=== PATIENT | female | born 1940 | race Asian ===

== ENCOUNTER 2019-08-25 15:16 | Inpatient (IN) | payer MEDICARE, OTHER ==
[2019-08-25] MEDS ORDERED: HALOPERIDOL 5 MG TABLET PO PRN (18:30)
[2019-08-25] MEDS ORDERED: ZOLPIDEM TARTRATE 10 MG TABLET PO PRN (18:30)
[2019-08-25] MEDS ORDERED: LORazepam 2 MG TABLET PO PRN (18:30)
[2019-08-25 20:55] VITALS: BP 129/87
[2019-08-25] MEDS ORDERED: PNEUMOCOCCAL VACCINE POLYVALENT 0.5 ML VIAL [PPSV23] IM ONE (23:45)
[2019-08-26 07:21] LABS: GLUCOMETER DEV NAME(LOC) 3EX.; GLUCOSE,POINT OF CARE 106 MG/DL (70-110)
[2019-08-26 08:05] LABS: ABG A-A DIFF O2 426.9 mmHg (10-20.0); ABG BASE EXCESS -24.1 mmol/L (-2.0-3.0); ABG CARBOXYHEMOGLOBIN 1.1 % (0.0-1.5); ABG METHEMOGLOBIN 0.3 % (0.0-1.5); ABG OXYGEN CONTENT 21.1 mL/dL (15.0-23.0); ABG OXYGEN SATURATION 99.3 % (95.0-98.0); ABG OXYHEMOGLOBIN 97.9 % (94.0-100.0); ABG TOTAL HEMOGLOBIN 14.9 G/dL (12.0-18.0); PO2, ARTERIAL BG 267.1 mmHg (71.0-79.0); SOURCE, BLOOD GAS ARTERIAL; TEMPERATURE, FAHRENHEIT, BG 98.6 FAHREN (96.0-98.6)
[2019-08-26 08:06] LABS: ABG HCO3 9.1 mmol/L (22.0-26.0); ABG PCO2 19 mmHg (35-45); ABG PH 7.094 (7.35-7.450); SITE, BLOOD GAS RT RADIAL
[2019-08-26 08:07] LABS: O2 DEVICE,BLOOD GAS NON REBREATHER (ROOM AIR)
[2019-08-26 08:11] LABS: EOSINOPHILS % (AUTO) 0 % (1.0-6.0); HEMATOCRIT 43.7 % (36-46); HEMOGLOBIN 14.2 g/dL (12.0-16.0); LYMPHOCYTES # (AUTO) 0.3 K/uL (1.0-4.8); LYMPHOCYTES % (AUTO) 1.6 % (22.0-44.0); MEAN CORPUSCULAR HEMOGLOBIN 32.9 pg (26.0-34.0); MEAN CORPUSCULAR HGB CONC 32.5 G/dL (31.0-37.0); MEAN CORPUSCULAR VOLUME 101 fL (80-100); MONOCYTES % (AUTO) 6.3 % (2.0-9.0); PLATELET COUNT (AUTO) 155 K/uL (150-450); RED BLOOD CELL COUNT(AUTO) 4.31 MIL/uL (4.00-5.20); RED CELL DISTRIBUTION WIDTH 16.3 % (11.5-14.5)
[2019-08-26 08:13] LABS: NEUTROPHILS % (AUTO) 92.1 % (40.0-70.0)
[2019-08-26] MEDS ORDERED: FUROSEMIDE 40 MG/4 ML VIAL IVP ONE (08:15)
[2019-08-26 08:24] LABS: INR 1.8 (0.9-1.1); PROTHROMBIN TIME 18.2 SEC (9.4-11.6)
[2019-08-26 09:01] LABS: LACTIC ACID 8.3 mmol/L (0.4-2.0)
[2019-08-26 09:14] LABS: ALBUMIN 2.7 g/dL (3.4-5.0); BILIRUBIN,TOTAL 2.3 mg/dL (0.1-1.0); CALCIUM, TOTAL 8.2 mg/dL (8.8-10.5); CREATININE 4.63 mg/dL (0.60-1.30); TOTAL PROTEIN, SERUM 5.7 g/dL (6.4-8.2)
[2019-08-26 09:19] LABS: POTASSIUM 7.5 mmol/L (3.5-5.1)
== END 2019-08-26 07:35 | disposition short-term general hospital (02) | DRG 885 ==
LOC: EMS 15:19 → 3EX 21:30
PROVIDERS: ADMIT Psychiatry & Neurology Child & Adolescent Psychiatry; ATTEND Psychiatry & Neurology Child & Adolescent Psychiatry
DX: F20.0 Paranoid schizophrenia (principal); G93.40 Encephalopathy, unspecified; R00.0 Tachycardia, unspecified
CPT/HCPCS: 82805; 83605; 93005; G0378; J1940

== ENCOUNTER 2019-08-26 07:40 | Inpatient (IN) | payer MEDICARE ==
[~2019-08-26] VITALS: Ht 152.4 cm; Wt 66.0 kg
[2019-08-26 08:00] VITALS: BP 113/79
[2019-08-26] MEDS ORDERED: SODIUM BICARBONATE [ADULT] 8.4% 50 MEQ/50 ML SYRINGE IVP ONE ×2 (09:31→12:15)
[2019-08-26] MEDS ORDERED: DEXTROSE 50%-WATER 25 GM/50 ML SYRINGE IVP ONE (09:31)
[2019-08-26] MEDS ORDERED: SODIUM CHLORIDE 0.9% 1,000 ML IV ONE (09:46)
[2019-08-26] MEDS ORDERED: BISACODYL 10 MG RECTAL RECTAL SUPPOSITORY PR PRN (10:00)
[2019-08-26] MEDS ORDERED: ZOLPIDEM TARTRATE 5 MG TABLET PO PRN (10:00)
[2019-08-26] MEDS ORDERED: ACETAMINOPHEN 325 MG TABLET PO PRN (10:00)
[2019-08-26] MEDS ORDERED: MAGNESIUM HYDROXIDE SUSPENSION 30 ML UDCUP PO PRN (10:00)
[2019-08-26] MEDS ORDERED: HYDROCODONE/ACETAMINOPHEN 5-325 MG TABLET PO PRN (10:00)
[2019-08-26] MEDS ORDERED: MORPHINE SULFATE 2 MG/ML SYRINGE IVP PRN (10:00)
[2019-08-26] MEDS ORDERED: ONDANSETRON HCL 4 MG/2 ML VIAL IVP PRN (10:00)
[2019-08-26] MEDS ORDERED: CALCIUM GLUCONATE 100 MG/ML 10 ML IVP ONE (11:00)
[2019-08-26] MEDS ORDERED: *CLINICAL-CEFEPIME DOSING CLINICAL ONE (11:15)
[2019-08-26 11:21] LABS: ABG A-A DIFF O2 92.8 mmHg (10-20.0); ABG BASE EXCESS -19.8 mmol/L (-2.0-3.0); ABG CARBOXYHEMOGLOBIN 1.1 % (0.0-1.5); ABG HCO3 11.1 mmol/L (22.0-26.0); ABG METHEMOGLOBIN 0.3 % (0.0-1.5); ABG OXYGEN CONTENT 18.9 mL/dL (15.0-23.0); ABG OXYGEN SATURATION 97.8 % (95.0-98.0); ABG OXYHEMOGLOBIN 96.4 % (94.0-100.0); ABG PCO2 27 mmHg (35-45); ABG PH 7.149 (7.35-7.450); ABG TOTAL HEMOGLOBIN 13.8 G/dL (12.0-18.0); SITE, BLOOD GAS RT RADIAL; SOURCE, BLOOD GAS ARTERIAL; TEMPERATURE, FAHRENHEIT, BG 98.6 FAHREN (96.0-98.6)
[2019-08-26 11:22] LABS: O2 DEVICE,BLOOD GAS CANNULA (ROOM AIR)
[2019-08-26] MEDS ORDERED: PHENYLEPHRINE 200 MG/D5%-WATER 250 ML IV PRN (11:30)
[2019-08-26] MEDS: SODIUM BICARBONATE 75 MEQ in SODIUM CHLORIDE 0.45% 1,000 ML IV SCH ×2 (11:47→22:29)
[2019-08-26 12:17] LABS: BASOPHILS % (AUTO) 0.2 % (0.0-2.0); EOSINOPHILS % (AUTO) 0 % (1.0-6.0); HEMOGLOBIN 13.2 g/dL (12.0-16.0); LYMPHOCYTES # (AUTO) 0.3 K/uL (1.0-4.8); LYMPHOCYTES % (AUTO) 1.6 % (22.0-44.0); MEAN CORPUSCULAR HEMOGLOBIN 32.9 pg (26.0-34.0); MEAN CORPUSCULAR HGB CONC 32.9 G/dL (31.0-37.0); MEAN CORPUSCULAR VOLUME 100 fL (80-100); MONOCYTES # (AUTO) 1.4 K/uL (0.1-1.0); MONOCYTES % (AUTO) 7.9 % (2.0-9.0); NEUTROPHILS # (AUTO) 15.7 K/uL (1.8-7.7); PLATELET COUNT (AUTO) 139 K/uL (150-450); RED CELL DISTRIBUTION WIDTH 16.1 % (11.5-14.5)
[2019-08-26 12:26] LABS: PROTHROMBIN TIME 20.7 SEC (9.4-11.6)
[2019-08-26 12:33] LABS: NEUTROPHILS % (AUTO) 90.3 % (40.0-70.0)
[2019-08-26 13:46] VITALS: BP 132/100
[2019-08-26 14:09] LABS: CALCIUM, TOTAL 8.1 mg/dL (8.8-10.5); CREATININE 4.67 mg/dL (0.60-1.30); MAGNESIUM 2.4 mg/dL (1.80-2.40)
[2019-08-26 14:19] LABS: PHOSPHORUS 10.5 mg/dL (2.5-4.9); POTASSIUM 6.3 mmol/L (3.5-5.1)
[2019-08-26] MEDS ORDERED: MANNITOL 25%-12.5 GM/50 ML VIAL IVP PRN (15:15)
[2019-08-26] MEDS ORDERED: SODIUM CITRATE 4% CATH FLUSH 5 ML SYRINGE IVP ONE ×2 (15:15)
[2019-08-26] MEDS: CEFEPIME HCL 1 GM in DEXTROSE 5%-WATER 50 ML IV SCH ×2 (15:42→16:08)
[2019-08-26] MEDS ORDERED: HEPARIN SODIUM,PORCINE 5,000 UNITS/ML VIAL SQ SCH (16:00)
[2019-08-26 17:00] VITALS: BP 104/57
[2019-08-26 20:00] VITALS: BP 115/69
[2019-08-26] MEDS: DOCUSATE SODIUM 100 MG CAPSULE PO SCH (21:00)
[2019-08-26] MEDS ORDERED: FUROSEMIDE 20 MG/2 ML VIAL IVP SCH (21:00)
[2019-08-27] VITALS: BP 91/66
[2019-08-27 01:18] LABS: C.DIFF GDH ANTIGEN, Stool Negative (Negative); C.DIFF TOXINS A&B, Stool Negative (Negative)
[2019-08-27 02:39] VITALS: BP 101/71
[2019-08-27 04:00] VITALS: BP 110/65
[2019-08-27 05:27] LABS: HEMATOCRIT 40.4 % (36-46); HEMOGLOBIN 13.4 g/dL (12.0-16.0); MEAN CORPUSCULAR HEMOGLOBIN 32.7 pg (26.0-34.0); MEAN CORPUSCULAR HGB CONC 33.2 G/dL (31.0-37.0); MEAN CORPUSCULAR VOLUME 98 fL (80-100); PLATELET COUNT (AUTO) 87 K/uL (150-450); RED CELL DISTRIBUTION WIDTH 16.2 % (11.5-14.5)
[2019-08-27 06:01] LABS: BAND NEUTROPHILS % (MANUAL) 10 % (0-5); CORRECTED WHITE BLOOD COUNT 13.4 K/uL (4.5-11.0); LYMPHOCYTES % (MANUAL) 1 % (22-44); MONOCYTES % (MANUAL) 5 % (2-9); SEGMENTED NEUTROPHILS % 84 % (40-70)
[2019-08-27 06:05] LABS: ALBUMIN 2.2 g/dL (3.4-5.0); BILIRUBIN,TOTAL 2.7 mg/dL (0.1-1.0); CALCIUM, TOTAL 7.7 mg/dL (8.8-10.5); MAGNESIUM 2.1 mg/dL (1.80-2.40); PHOSPHORUS 8.3 mg/dL (2.5-4.9); POTASSIUM 5.7 mmol/L (3.5-5.1); THYROID STIMULATING HORMONE 11.34 uIU/mL (0.36-3.74); TOTAL PROTEIN, SERUM 4.4 g/dL (6.4-8.2)
[2019-08-27] MEDS ORDERED: DEXTROSE 50%-WATER 25 GM/50 ML SYRINGE IVP ONE ×2 (06:09→19:29)
[2019-08-27] MEDS ORDERED: DEXTROSE 50%-WATER 25 GM/50 ML SYRINGE IVP PRN (06:30)
[2019-08-27 07:31] LABS: GLUCOSE,POINT OF CARE 198 MG/DL (70-110)
[2019-08-27] MEDS: DOCUSATE SODIUM 100 MG CAPSULE PO SCH (09:00)
[2019-08-27] MEDS ORDERED: PANTOPRAZOLE SODIUM 40 MG DR TABLET PO SCH (09:00)
[2019-08-27] MEDS ORDERED: NOREPINEPHRINE 4 MG/D5%-WATER 250 ML IV ONE (09:18)
[2019-08-27] MEDS ORDERED: VASOPRESSIN 40 UNITS in DEXTROSE 5%-WATER 98 ML IV PRN (10:15)
[2019-08-27 10:16] LABS: ABG A-A DIFF O2 454.1 mmHg (10-20.0); ABG BASE EXCESS -17.2 mmol/L (-2.0-3.0); ABG HCO3 12.8 mmol/L (22.0-26.0); ABG METHEMOGLOBIN 0.3 % (0.0-1.5); ABG OXYGEN CONTENT 19.4 mL/dL (15.0-23.0); ABG OXYGEN SATURATION 99.1 % (95.0-98.0); ABG OXYHEMOGLOBIN 97.8 % (94.0-100.0); ABG PCO2 26 mmHg (35-45); ABG TOTAL HEMOGLOBIN 13.7 G/dL (12.0-18.0); O2 DEVICE,BLOOD GAS VENTILATOR (ROOM AIR); PO2, ARTERIAL BG 232.7 mmHg (71.0-79.0); SITE, BLOOD GAS LFT RADIAL; SOURCE, BLOOD GAS ARTERIAL; TEMPERATURE, FAHRENHEIT, BG 98.6 FAHREN (96.0-98.6)
[2019-08-27 10:17] LABS: PEEP,BG 5 cm H2O; VT, ABG 450 ml
[2019-08-27] MEDS: NOREPINEPHRINE 4 MG/D5%-WATER 250 ML IV PRN ×3 (10:24→16:20)
[2019-08-27] MEDS ORDERED: DOPamine HCL 400 MG/D5%-WATER 250 ML IV PRN (10:30)
[2019-08-27] MEDS ORDERED: SODIUM CHLORIDE 0.9% 500 ML IV ONE (10:32)
[2019-08-27] MEDS ORDERED: PROPOFOL 1000 MG/ISO-OSM 100 ML IV ONE (11:24)
[2019-08-27] MEDS ORDERED: PROPOFOL 1000 MG/ISO-OSM 100 ML IV PRN (11:30)
[2019-08-27] MEDS ORDERED: SODIUM CHLORIDE 0.9% 250 ML IV ONE (12:11)
[2019-08-27] MEDS ORDERED: CEFEPIME HCL 0.5 GM in DEXTROSE 5%-WATER 50 ML IV SCH (16:00)
[2019-08-27] MEDS ORDERED: ALBUMIN HUMAN 5%-12.5GM/250ML 250 ML IV ONE (17:00)
[2019-08-27 17:04] LABS: HEMATOCRIT 40.2 % (36-46); HEMOGLOBIN 12.6 g/dL (12.0-16.0); MEAN CORPUSCULAR HEMOGLOBIN 32.8 pg (26.0-34.0); MEAN CORPUSCULAR HGB CONC 31.2 G/dL (31.0-37.0); MEAN CORPUSCULAR VOLUME 105 fL (80-100); RED BLOOD CELL COUNT(AUTO) 3.83 MIL/uL (4.00-5.20); RED CELL DISTRIBUTION WIDTH 17.6 % (11.5-14.5)
[2019-08-27 17:06] VITALS: BP 92/70
[2019-08-27 17:16] LABS: CALCIUM, TOTAL 7.4 mg/dL (8.8-10.5); CREATININE 4.41 mg/dL (0.60-1.30); MAGNESIUM 2.4 mg/dL (1.80-2.40)
[2019-08-27 17:41] LABS: PHOSPHORUS 11.4 mg/dL (2.5-4.9); POTASSIUM 6.4 mmol/L (3.5-5.1)
[2019-08-27 18:01] LABS: PLATELET COUNT (AUTO) 59 K/uL (150-450)
[2019-08-27 18:05] LABS: BAND NEUTROPHILS % (MANUAL) 13 % (0-5); CORRECTED WHITE BLOOD COUNT 6.4 K/uL (4.5-11.0); LYMPHOCYTES % (MANUAL) 7 % (22-44); MONOCYTES % (MANUAL) 4 % (2-9); SEGMENTED NEUTROPHILS % 76 % (40-70)
[2019-08-27] MEDS ORDERED: SODIUM BICARBONATE [ADULT] 8.4% 50 MEQ/50 ML SYRINGE IVP ONE (19:29)
[2019-08-27] MEDS ORDERED: AMIODARONE HCL 50 MG/ML 3 ML VIAL IV ONE (19:29)
[2019-08-27] MEDS ORDERED: EPINEPHrine 1:10,000 [1 MG/10 ML] SYRINGE IVP ONE (19:29)
[2019-08-27] MEDS ORDERED: 0.9% SODIUM CHLORIDE 10 ML SYRINGE IVP ONE (19:29)
[2019-08-27] MEDS ORDERED: CALCIUM CHLORIDE 100 MG/ML 10 ML SYRINGE IVP ONE (19:29)
[2019-08-27 22:51] LABS: GLUCOSE,POINT OF CARE < 10 MG/DL (70-110)
[2019-08-28 08:47] LABS: GLUCOSE,POINT OF CARE 78 MG/DL (70-110)
== END 2019-08-27 19:30 | disposition expired | DRG 871 ==
LOC: ICU 07:40
PROVIDERS: ADMIT Internal Medicine; ATTEND Internal Medicine
PROC: 06HN33Z Insertion of Infusion Device into Left Femoral Vein, Percutaneous Approach (ICD-10-PCS; principal; 2019-08-26)
PROC: 5A1935Z Respiratory Ventilation, Less than 24 Consecutive Hours (ICD-10-PCS; 2019-08-27)
PROC: 0BH17EZ Insertion of Endotracheal Airway into Trachea, Via Natural or Artificial Opening (ICD-10-PCS; 2019-08-27)
PROC: 5A12012 Performance of Cardiac Output, Single, Manual (ICD-10-PCS; 2019-08-27)
PROC: 5A1D70Z Performance of Urinary Filtration, Intermittent, Less than 6 Hours Per Day (ICD-10-PCS; 2019-08-27)
DX: A41.9 Sepsis, unspecified organism (principal); N17.0 Acute kidney failure with tubular necrosis; J18.9 Pneumonia, unspecified organism; G93.41 Metabolic encephalopathy; I50.31 Acute diastolic (congestive) heart failure; J96.00 Acute respiratory failure, unspecified whether with hypoxia or hypercapnia; M62.82 Rhabdomyolysis; I13.0 Hypertensive heart and chronic kidney disease with heart failure and stage 1 through stage 4 chronic kidney disease, or unspecified chronic kidney disease; I42.0 Dilated cardiomyopathy; E87.5 Hyperkalemia; D69.6 Thrombocytopenia, unspecified; E83.39 Other disorders of phosphorus metabolism; F03.90 Unspecified dementia, unspecified severity, without behavioral disturbance, psychotic disturbance, mood disturbance, and anxiety; I48.0 Paroxysmal atrial fibrillation; N18.9 Chronic kidney disease, unspecified; Z86.74 Personal history of sudden cardiac arrest; I46.9 Cardiac arrest, cause unspecified
CPT/HCPCS: 36600; 70450; 82805; 83735; 84100; 84132; 84443; 87040; 87081; 87205; 87324; 87340; 87449; 92950; 93005; 93306; 94002; G0378; J0171; J0282; J0610; J0692; J1644; J2270; J2370; J2704; J3490; J7030; J7040; J7050; J7060